=== PATIENT | male | born 2005 | race Caucasian/White ===

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

== ENCOUNTER 2024-04-29 13:25 | Emergency (ER) | payer BC, SELFPAY ==
[2024-04-29 14:01] VITALS: BP 110/54; PULSE 78; RESP 18; TEMP 37; O2SAT 98; BMI 21.1
--- NOTE | 2024-04-29 14:05 | ED_ITS ---
Discharge Plan Disposition Patient Disposition: Home, Self-Care Condition: Good Prescriptions Prescriptions: New ibuprofen 600 mg tablet 600 mg PO Q6HP PRN (Reason: Mild Pain) Qty: 30 0RF ondansetron 4 mg Tablet,Disintegrating 4 mg PO Q8H PRN (Reason: Nausea) Qty: 12 0RF No Action dextroamphetamine-amphetamine [Mydayis] 25 mg capsule, ER triphasic 24 hr 25 mg PO DAILY Qty: 30 0RF Referrals Follow up/Referrals: Aron Stoll DO [Primary Care Provider] - See instructions Activity Restrictions/Add. Instructions Additional Instructions/Restrictions: Drink plenty of fluids. Take tylenol or ibuprofen for pain or fever. Take the medications as directed. Follow up with your regular doctor. GO TO THE ER FOR ANY WORSENING SYMPTOMS Clinical Impressions Clinical Impression: Acute viral syndrome Stand Alone Forms Stand Alone Forms: Work/School Release Instructions Patient Instructions: DI for Viral Syndrome, Ondansetron Print Language Print Language: Ivorian Discharge ED Provider: Carlos Lozano [facility] General Stated complaint: headache, stomach pain Mode of Arrival: Ambulatory Source of Information: Patient Time Seen by Provider: 04/29/24 14:04 Description of Symptoms (Recalled from Triage Doc. by RN): STOMACH PAINS, PRAKASH, COLD SWEATS, FEVERS, NAUSEA HEENT Symptoms (Recalled from RN notes): Yes Resp Symptoms (Recalled from RN notes): Yes Skin Symptoms (Recalled from RN notes): No MS Symptoms (Recalled from RN notes): No Functional Status (Recalled from RN notes): WNL Related Data Previous Rx's ?Medication ?Instructions ?Recorded Mydayis 25 mg capsule extended 25 mg PO DAILY #30 ea 04/24/24 release 24 hr (dextroamphetamine-amphetamine) ibuprofen 600 mg tablet 600 mg PO Q6HP PRN Mild Pain #30 04/29/24 tabs ondansetron 4 mg disintegrating 4 mg PO Q8H PRN Nausea #12 tabs 04/29/24 tablet Allergies Allergy/AdvReac Type Severity Reaction Status Date / Time dupilumab [From Dupixent Pen] Allergy Verified 04/24/24 14:46 paroxetine [From Paxil] AdvReac Intermediate Nausea, Verified 04/24/24 14:46 headache, emotionless Worker's Comp Is this a Worker's Comp case?: No [facility] Disclaimer: The information contained in this section may have been updated after the patient was seen, as this information can be updated by other users. Medical History (Updated 04/29/24 @ 14:42 by Carlos Lozano APRN) Decreased hearing Tympanosclerosis Asthma Attention deficit hyperactivity disorder (ADHD) Depression Anxiety Blood in urine Surgical History History of tonsillectomy Social History Smoking Status: Never smoker second hand exposure: No alcohol intake: never substance use type: denies use current occupational status: student and other Travel in the last 8 weeks: None household members: family housing: house ROS Obtained: Yes All systems reviewed & no additional complaints except as documented Constitutional Constitutional: Reports chills and Reports fever(s) Eyes Eyes: Denies eye discharge ENT Ears, Nose, Mouth, and Throat: Reports as per HPI Cardiovascular Cardiovascular: Denies chest pain Respiratory Respiratory: Denies chest congestion and Reports cough Gastrointestinal Gastrointestingal: Reports nausea; Denies abdominal pain, constipation, crampi ng, diarrhea or vomiting Musculoskeletal Musculoskeletal: Denies arthralgias Integumentary/Breasts Skin/Breast: Denies rash Neurologic Neurologic: Denies paresthesias Physical Exam General General appearance: alert and in no apparent distress Eye Eye exam: Present normal appearance, PERRL and EOMI ENT ENT exam: Present mucous membranes moist and normal external ear exam Expanded ENT Exam External ear exam: Present normal external inspection TM/Canal exam: Bilateral TM: erythema and bulging Nose exam: Absent sinus tenderness Nasal speculum exam: Bilateral: normal Mouth exam: Present normal external inspection; Absent drooling Teeth exam: Present normal inspection Throat exam: Present tonsillar erythema and tonsillomegaly Neck Neck exam: Present normal inspection, full ROM and trachea midline; Absent tenderness, lymphadenopathy or thyromegaly Chest Chest inspection: Present normal inspection and symmetric chest wall rise; Absent tenderness or rash Respiratory Respiratory exam: Present normal lung sounds bilaterally; Absent respiratory distress, wheezes, stridor or accessory muscle use Cardiovascular Cardiovascular exam: Present regular rate, normal rhythm and normal heart sounds Abdominal Exam Abdominal exam: Present soft; Absent distention, tenderness, guarding, rebound or rigidity Extremities Exam Extremities exam: Present normal inspection, full ROM and normal capillary refill; Absent tenderness or calf tenderness Back Exam Back exam: Present normal inspection and full ROM; Absent tenderness Neurological Exam Neurological exam: Present alert and oriented X3 Psychiatric Psychiatric exam: Present normal affect and normal mood Skin Skin exam: Present warm, dry, intact and normal color Lymphatic Lymphatic Findings: no adenopathy Medical Decision Making Medical Records Medical records reviewed: No I reviewed the patient's medical records. Screening: Per USPSTF and CDC recommendations, given the prevalence of disease in our region, it is our hospital?s policy to screen for HIV and viral Hepatitis for all patients aged 18 and over and those with ongoing risk factors. [place] Inquiry Pt receiving controlled substance: No Vital Signs: 04/29/24 14:01 Temperature 98.6 F Temperature Source Oral Pulse Rate [Left Radial] 78 Respiratory Rate 18 Blood Pressure [Left Arm] 110/54 L Blood Pressure Mean [Left Arm] 72 02 Sat by Pulse Oximetry 98
[2024-04-29 14:12] LABS: UTC Influenza A Antigen Negative (Negative)
[2024-04-29 14:13] LABS: UTC Influenza B Antigen Negative (Negative)
[2024-04-29 14:47] VITALS: BP 110/54; PULSE 78; RESP 18; TEMP 37
== END 2024-04-29 14:49 | disposition home or self-care (01) ==
PROVIDERS: Emergency Provider Nurse Practitioner Family; PCP Internal Medicine
DX: B34.9 Viral infection, unspecified (principal); R51.9 Headache, unspecified; R10.9 Unspecified abdominal pain; R50.9 Fever, unspecified; R05.9 Cough, unspecified; R11.0 Nausea
CPT/HCPCS: 87635; 87804; 99212; G0381